=== PATIENT | female | born 1975 | race Caucasian/White ===

== ENCOUNTER 2017-07-30 17:04 | Emergency (ER) | payer OTHER ==
[~2017-07-30] VITALS: Ht 157.5 cm; Wt 61.3 kg
[~2017-07-30 17:04] MED LIST: ABILIFY; BIRTHCONTROL; CLONOPIN; DETROL; Dilaudid PO; GABAPENTIN600 MG PO; INDERAL60 MG PO; LAMICTAL150 M1 PO; LEVOTHYROXINE; LEVOTHYROXINE75 MCG PO; LEXAPRO; LEXAPRO20 MG PO; METHADONE10 MG PO; Motrin PO; TRAZADONE; XANAX0.5 MG PO
[2017-07-30 17:51] LABS: BASOPHIL (%) 0.5 % (0-1); EOSINOPHIL (%) 2.2 % (0-5); EOSINOPHIL COUNT 0.2 K/uL (0-0.3); HEMOGLOBIN 14.1 G/DL (11.9-15.5); IMMATURE GRANULOCYTE (%) 0.2 % (0.0-0.7); LYMPHOCYTE (%) 38.9 % (15-42); LYMPHOCYTE COUNT 3.2 K/uL (1.0-2.8); MCH 32.7 PG (29.0-34.0); MCHC 35.3 G/DL (30.0-36.0); MCV 92.8 FL (83-99); MONOCYTE (%) 7.3 % (3-12); MONOCYTE COUNT 0.6 K/uL (0-0.8); NEUTROPHIL (%) 50.9 % (45-76); NEUTROPHIL COUNT 4.2 K/uL (1.8-6.4); PLATELET COUNT 187 K/uL (156-360); RBC DIS.WIDTH-CV 12.5 % (11.8-14.6); RED BLOOD COUNT 4.31 M/uL (3.80-5.20); WHITE BLOOD COUNT 8.3 K/uL (4.1-10.2)
[2017-07-30 18:00] LABS: ALBUMIN 4.8 g/dL (3.2-4.8); CHLORIDE 109 mEq/L (99-109); POTASSIUM 3.4 mEq/L (3.7-5.4); SODIUM 142 mEq/L (136-147)
[2017-07-30 18:03] LABS: GLUCOSE 99 mg/dL (70-99); TOTAL PROTEIN 7.7 g/dL (6.4-8.3)
[2017-07-30 18:05] LABS: TOTAL BILIRUBIN 0.3 mg/dL (0.0-1.0)
[2017-07-30 18:06] LABS: ALKALINE PHOSPHATASE 48 IU/L (3-129); CREATININE 0.8 mg/dL (0.6-1.3); GFR ESTIMATE (CALCULATED) > 59 mL/min/
[2017-07-30 18:08] LABS: AST (GOT) 17 IU/L (2-34); UREA NITROGEN (BUN) 11 mg/dL (9-23)
[2017-07-30 18:09] LABS: ALT (GPT) 14 IU/L (3-49); CREATINE KINASE 85 IU/L (1-294); TOTAL CK 85 IU/L (1-294)
[2017-07-30 18:13] LABS: TROP-I INTERPRETATION NEGATIVE; TROPONIN-I < 0.01 ng/mL (0.0-0.30)
[2017-07-30 18:15] LABS: QUANTITATIVE HCG < 4.0 MIU/ML
[2017-07-30 18:16] LABS: CK-MB 0.7 ng/mL (0.0-4.9); CKMB RELATIVE INDEX 0.8 (0.0-3.9)
[2017-07-30 19:45] VITALS: BP 104/52
== END 2017-07-30 19:53 | disposition left against medical advice (07) ==
LOC: EME 17:04
PROVIDERS: Emergency Medicine
DX: R47.81 Slurred speech (principal); R53.1 Weakness; R42 Dizziness and giddiness; R29.810 Facial weakness; H53.2 Diplopia; M54.9 Dorsalgia, unspecified; R07.9 Chest pain, unspecified; R51 Headache; R11.0 Nausea; R10.9 Unspecified abdominal pain; Z87.442 Personal history of urinary calculi; F17.200 Nicotine dependence, unspecified, uncomplicated; Z53.29 Procedure and treatment not carried out because of patient's decision for other reasons
CPT/HCPCS: 70450; 71046; 80053; 81003; 82550; 82553; 84484; 84702; 85025; 93005; 99281; 99285; J7030